=== PATIENT | male | born 1950 | race Caucasian/White ===

== ENCOUNTER 2024-06-17 05:57 | Outpatient (CLI) | payer MEDICARE, SELFPAY | END 2024-06-17 05:58 | disposition home or self-care (01) | LOC: AMB 06-27 02:27 | PROVIDERS: PCP Internal Medicine Nephrology; Visit Provider Family Medicine | DX: R07.89 Other chest pain (principal) | CPT/HCPCS: A0425; A0427 ==

== ENCOUNTER 2024-06-24 05:54 | Outpatient (CLI) | payer MEDICARE, SELFPAY | END 2024-06-24 05:55 | disposition home or self-care (01) | LOC: AMB 07-08 13:59 | PROVIDERS: PCP Internal Medicine Nephrology; Visit Provider Family Medicine | DX: R07.89 Other chest pain (principal) | CPT/HCPCS: A0425; A0427 ==